=== PATIENT | male | born 1960 | race Caucasian/White ===

== ENCOUNTER 2019-07-06 17:30 | Emergency (ER) | payer MEDICAID, MEDICARE ==
[~2019-07-06] VITALS: Ht 177.8 cm; Wt 90.9 kg
[~2019-07-06 17:30] MED LIST: CHOL100062 PO; ESCI10TA PO; MULT-723 PO
[2019-07-06] MEDS ORDERED: KETOROLAC TROMETHAMINE 30 MG/ML VIAL IM ONE (21:00)
[2019-07-06] MEDS ORDERED: ONDANSETRON HCL 4 MG/2 ML VIAL IM ONE (21:00)
[2019-07-06] MEDS ORDERED: MORPHINE SULFATE 4 MG/ML SYRINGE IM ONE (21:00)
[2019-07-06 22:30] VITALS: BP 135/76
== END 2019-07-06 22:56 | disposition home or self-care (01) ==
LOC: EMS 17:31
DX: S22.31XA Fracture of one rib, right side, initial encounter for closed fracture (principal); S00.01XA Abrasion of scalp, initial encounter; R51 Headache; F17.210 Nicotine dependence, cigarettes, uncomplicated; F32.9 Major depressive disorder, single episode, unspecified; Z88.8 Allergy status to other drugs, medicaments and biological substances; W10.2XXA Fall (on)(from) incline, initial encounter; Y93.89 Activity, other specified; Y92.89 Other specified places as the place of occurrence of the external cause; Y99.8 Other external cause status
CPT/HCPCS: 70450; 71101; 72125; 96372; 99284; 99406; J1885; J2270; J2405